=== PATIENT | female | born 1965 | race Caucasian/White ===

== ENCOUNTER → 2016-11-02 | Outpatient (CLI) | payer BC ==
--- NOTE | 2016-11-02 10:59 | MR ---
EXAMINATION TYPE: MR shoulder RT wo con DATE OF EXAM: 11/02/2016 COMPARISON: NONE HISTORY: Right shoulder pain TECHNIQUE: Multiplanar, multisequence imaging of the right shoulder is performed without contrast. FINDINGS: Rotator Cuff: Subcortical humeral head cysts appear to be present. Fluid type signal transverses the distal supraspinatus tendon. Perforation is likely present. A tear approximately 0.5 cm be considered . No retraction is evident. Supraspinatus muscle and additional rotator cuff tendons and muscles are of normal signal. Acromioclavicular Joint: Normal Glenohumeral Joint: Narrowed. Articular surface may be narrowed. Labrum: The labrum appears grossly intact given limitation of non-arthrogram study. Biceps Tendon: The long head of biceps is in normal location within bicipital groove. Small amount of fluid is adjacent suggestive for some mild tendinosis. Bone marrow signal: No focal abnormal marrow signal is appreciated. Other: There is fluid in subacromial bursa and subdeltoid bursa. Fluid appears to transverse the dist al supraspinatus tendon. Findings are suggestive for perforation of the supraspinatus tendon. IMPRESSION: 1. Perforation of the distal supraspinatus tendon. Small amount of fluid in the subdeltoid bursa and subacromial bursa. No retraction is evident.
== END | disposition home or self-care (01) ==
LOC: RADMRIMAIN 08:33
PROVIDERS: ATTEND Orthopaedic Surgery
DX: M25.411 Effusion, right shoulder (principal)

== ENCOUNTER → 2016-11-22 | Outpatient (CLI) | payer BC ==
--- NOTE | 2016-11-23 12:59 | MM ---
Reason for exam: screening (asymptomatic). Last mammogram was performed 1 year and 3 months ago. History: Family history of breast cancer in paternal grandmother. Took hormonal contraceptives for 5 years. Physical Findings: A clinical breast exam by your physician is recommended on an annual basis and results should be correlated with mammographic findings. MG Screening Mammo w CAD Bilateral CC and MLO view(s) were taken. Prior study comparison: August 04, 2015, bilateral MG screening mammo w CAD. July 01, 2013, bilateral digital screening mammo w/CAD. April 09, 2012, bilateral digital screening mammo w/CAD. There are scattered fibroglandular densities. There is chronic nodularity in the left breast. Stable grouped calcifications superior left breast. No significant changes when compared with prior studies. ASSESSMENT: Negative, BI-RAD 1 RECOMMENDATION: Routine screening mammogram of both breasts in 1 year.
== END | disposition home or self-care (01) ==
LOC: RADMAMWWP 11:19
PROVIDERS: ATTEND Family Medicine
DX: Z12.31 Encounter for screening mammogram for malignant neoplasm of breast (principal)

== ENCOUNTER → 2017-12-12 | Outpatient (CLI) | payer BC ==
--- NOTE | 2017-12-13 09:01 | MM ---
Reason for exam: screening (asymptomatic). Last mammogram was performed 1 year and 1 month ago. History: Family history of breast cancer in paternal grandmother. Took hormonal contraceptives for 5 years. Physical Findings: A clinical breast exam by your physician is recommended on an annual basis and results should be correlated with mammographic findings. MG Screening Mammo w CAD Bilateral CC and MLO view(s) were taken. Prior study comparison: November 22, 2016, bilateral MG screening mammo w CAD. August 09, 2015, left breast MG work up mamm w CAD LT. The breast tissue is heterogeneously dense. This may lower the sensitivity of mammography. No suspicious abnormality. No significant changes when compared with prior studies. ASSESSMENT: Negative, BI-RAD 1 RECOMMENDATION: Routine screening mammogram of both breasts in 1 year.
== END | disposition home or self-care (01) ==
LOC: RADMAMWWP 07:54
PROVIDERS: ATTEND Family Medicine
DX: Z12.31 Encounter for screening mammogram for malignant neoplasm of breast (principal)
CPT/HCPCS: 77067

== ENCOUNTER → 2019-01-02 | Outpatient (CLI) | payer BC ==
--- NOTE | 2019-01-03 14:36 | MM ---
Reason for exam: screening (asymptomatic). Last mammogram was performed 1 year and 1 month ago. History: Family history of breast cancer in paternal grandmother. Took hormonal contraceptives for 5 years. Physical Findings: A clinical breast exam by your physician is recommended on an annual basis and results should be correlated with mammographic findings. MG 3D Screening Mammo W/Cad Bilateral CC and MLO view(s) were taken. Prior study comparison: December 12, 2017, bilateral MG screening mammo w CAD. November 22, 2016, bilateral MG screening mammo w CAD. There are scattered fibroglandular densities. No suspicious abnormality. No significant changes when compared with prior studies. ASSESSMENT: Negative, BI-RAD 1 RECOMMENDATION: Routine screening mammogram of both breasts in 1 year.
== END | disposition home or self-care (01) ==
LOC: RADMAMWWP 09:15
PROVIDERS: ATTEND Family Medicine
DX: Z12.31 Encounter for screening mammogram for malignant neoplasm of breast (principal)
CPT/HCPCS: 77063; 77067

== ENCOUNTER → 2019-08-29 | Outpatient (CLI) | payer BC ==
--- NOTE | 2019-08-29 15:21 | FL ---
EXAMINATION TYPE: FL barium swallow DATE OF EXAM: 08/29/2019 COMPARISON: 09/27/2015 HISTORY: Dysphasia this represents fundal plasty TECHNIQUE: A single contrast UGI study is performed. FINDINGS: Esophagus dilates to normal caliber has normal contour to the gastroesophageal junction. Gastroesopha geal junction opens to normal caliber. Very mild hesitancy passing through the prior surgery is evide nt. IMPRESSIONS: 1. No hernia or reflux evident post Bulmaro fundoplication. 2. Incidental note is made of mild fold hypertrophy within the duodenum. Consider upper GI for better evaluation of possible duodenitis.
== END | disposition home or self-care (01) ==
LOC: RADUSWWP 08:33
PROVIDERS: ATTEND Family Medicine
DX: R13.19 Other dysphagia (principal)
CPT/HCPCS: 74220

== ENCOUNTER → 2020-01-05 | Outpatient (CLI) | payer BC ==
--- NOTE | 2020-01-07 09:50 | MM ---
Reason for exam: screening (asymptomatic). Last mammogram was performed 1 year ago. History: Patient is postmenopausal. Family history of breast cancer in paternal grandmother. Took hormonal contraceptives for 5 years. Physical Findings: A clinical breast exam by your physician is recommended on an annual basis and results should be correlated with mammographic findings. MG Screening Mammo w CAD Bilateral CC and MLO view(s) were taken. XCCL view(s) were taken of the right breast. Prior study comparison: January 02, 2019, bilateral MG 3d screening mammo w/cad. December 12, 2017, bilateral MG screening mammo w CAD. There are scattered fibroglandular densities. There is chronic nodularity in the left breast. Stable grouped calcifications 1 o'clock left breast. No significant changes when compared with prior studies. ASSESSMENT: Benign, BI-RAD 2 RECOMMENDATION: Routine screening mammogram of both breasts in 1 year.
== END | disposition home or self-care (01) ==
LOC: RADMAMWWP 13:18
PROVIDERS: ATTEND Family Medicine
DX: Z12.31 Encounter for screening mammogram for malignant neoplasm of breast (principal)
CPT/HCPCS: 77067

== ENCOUNTER → 2020-01-14 | Outpatient (CLI) | payer BC ==
--- NOTE | 2020-01-14 11:24 | XR ---
EXAMINATION TYPE: XR chest 2V DATE OF EXAM: 01/14/2020 COMPARISON: None HISTORY: 54-year-old female with cough TECHNIQUE: Frontal and lateral views FINDINGS: The cardiomediastinal silhouette, aorta, and pulmonary vasculature are within normal limits. Lungs an d pleural spaces are clear. Multiple embolization coils noted along the superior mediastinum. IMPRESSION: No acute cardiopulmonary process. Multiple embolization coils along the superior mediastinum from gerda or vascular intervention. Clinically correlate.
== END | disposition home or self-care (01) ==
LOC: RADXRMAIN 10:55
PROVIDERS: ATTEND Family Medicine
DX: R05 Cough (principal); Z98.890 Other specified postprocedural states
CPT/HCPCS: 71046

== ENCOUNTER → 2021-03-11 | Outpatient (CLI) | payer BC ==
--- NOTE | 2021-03-14 13:53 | MM ---
Reason for exam: screening (asymptomatic). Last mammogram was performed 1 year and 2 months ago. History: Patient is postmenopausal. Family history of breast cancer in paternal grandmother. Took hormonal contraceptives for 5 years. Physical Findings: A clinical breast exam by your physician is recommended on an annual basis and results should be correlated with mammographic findings. MG 3D Screening Mammo W/Cad Bilateral CC and MLO view(s) were taken. Prior study comparison: January 05, 2020, bilateral MG screening mammo w CAD. January 02, 2019, bilateral MG 3d screening mammo w/cad. There are scattered fibroglandular densities. There is chronic nodularity in the left breast. No significant changes when compared with prior studies. ASSESSMENT: Benign, BI-RAD 2 RECOMMENDATION: Routine screening mammogram of both breasts in 1 year.
== END | disposition home or self-care (01) ==
LOC: RADMAMWWP 07:47
PROVIDERS: ATTEND Family Medicine
DX: Z12.31 Encounter for screening mammogram for malignant neoplasm of breast (principal); Z78.0 Asymptomatic menopausal state; Z80.3 Family history of malignant neoplasm of breast
CPT/HCPCS: 77063; 77067

== ENCOUNTER → 2022-06-30 | Outpatient (CLI) | payer BC ==
--- NOTE | 2022-07-03 06:56 | MM ---
Reason for Exam: Screening (asymptomatic). Last mammogram was performed 1 year(s) and 3 month(s) ago. Patient History: Menarche at age 13. First Full-Term at age 21. Postmenopausal. Patient used Hormonal Contraceptives for 5 years. Paternal grandmother had breast cancer. Risk Values: Katie 5 year model risk: 1.1%. NCI Lifetime model risk: 7.2%. Prior Study Comparison: 01/02/2019 Bilateral Screening Mammogram, [facility]. 01/05/2020 Bilateral Screening Mammogram, [facility]. 03/11/2021 Bilateral Screening Mammogram, [facility]. Tissue Density: The breast tissue is heterogeneously dense. This may lower the sensitivity of mammography. Findings: Analyzed By CAD. There are stable small circumscribed round masses bilaterally on background dense tissue with occasional tiny benign-appearing punctate calcification redemonstrated bilaterally. Benign-appearing bilateral axillary lymph nodes are again seen. There is no suspicious new group of microcalcifications or new or enlarging suspicious mass in either breast. Overall Assessment: Benign, BI-RAD 2 Management: Screening Mammogram of both breasts in 1 year. . Patient should continue monthly self-breast exams. A clinical breast exam by your physician is recommended on an annual basis. This exam should not preclude additional follow-up of suspicious palpable abnormalities. Note on Katie scores and lifetime risk: 1. A Katie score greater than 3% is considered moderate risk. If this is the case, consider specialist referral to assess eligibility for a risk reducing agent. 2. If overall lifetime risk for the development of breast cancer is 20% or higher, the patient may qualify for future screening with alternating mammogram and breast MRI. Electronically signed and approved by: Leo Agrawal M.D.
== END | disposition home or self-care (01) ==
LOC: RADMAMWWP 07:01
PROVIDERS: ATTEND Family Medicine
DX: Z12.31 Encounter for screening mammogram for malignant neoplasm of breast (principal)
CPT/HCPCS: 77063; 77067

== ENCOUNTER → 2023-06-20 | Outpatient (CLI) | payer BC ==
[2023-06-20 15:45] LABS: Basophils # (A) 0.04 X 10*3/uL (0.00-0.10); Basophils % (A) 0.7 %; Eosinophils # (A) 0.11 X 10*3/uL (0.04-0.35); Eosinophils % (A) 1.9 %; HCT 42.5 % (37.2-46.3); HGB 14.2 g/dL (12.0-15.0); Lymphocytes % (A) 24.6 %; MCH 30.3 pg (27.0-32.0); MCHC 33.4 g/dL (32.0-37.0); MCV 90.6 FL (80.0-97.0); Mean Platelet Volume 11.3 FL (9.5-12.2); Monocytes # (A) 0.32 X 10*3/uL (0.20-1.00); Monocytes % (A) 5.6 %; NRBC Per 100 WBC 0 X 10*3/uL (0.00-0.01); Neutrophils % (A) 66.8 %; Platelet Count 250 X 10*3/uL (140-440); RBC 4.69 X 10*6/uL (4.10-5.20); RDW 12.8 % (11.5-14.5); WBC 5.69 X 10*3/uL (4.50-10.00)
[2023-06-20 16:04] LABS: ALT 12 U/L (8-44); AST 14 U/L (13-35); Albumin 4.4 g/dL (3.8-4.9); Albumin/Globulin Ratio 1.76 Ratio (1.60-3.17); Alkaline Phosphatase 102 U/L (41-126); BUN/Creat Ratio 12.73 Ratio (12.00-20.00); Calcium 9.6 mg/dL (8.7-10.3); Carbon Dioxide 28.4 mmol/L (21.6-31.8); Chloride 102 mmol/L (96-109); Chol/HDL Ratio 3.19 Ratio; Globulin 2.5 g/dL (1.6-3.3); Glucose 98 mg/dL (70-110); LDL Cholesterol,Calculated 118.3 mg/dL (0.0-131.0); Potassium 3.8 mmol/L (3.5-5.5); Sodium 142 mmol/L (135-145); Total Bilirubin 0.7 mg/dL (0.3-1.2); Total Protein 6.9 g/dL (6.2-8.2)
== END | disposition home or self-care (01) ==
LOC: LABWHC1 09:37
PROVIDERS: ATTEND Family Medicine
DX: Z00.00 Encounter for general adult medical examination without abnormal findings (principal); I10 Essential (primary) hypertension; R14.0 Abdominal distension (gaseous)
CPT/HCPCS: 36415; 80053; 80061; 83036; 83516; 85025

== ENCOUNTER → 2023-07-09 | Outpatient (CLI) | payer BC ==
--- NOTE | 2023-07-09 10:32 | MM ---
Reason for Exam: Screening (asymptomatic). Last mammogram was performed 1 year(s) and 1 month(s) ago. Patient History: Menarche at age 13. First Full-Term at age 21. Postmenopausal. Patient has history of breast feeding. Patient used Hormonal Contraceptives for 5 years. Paternal grandmother had breast cancer. Risk Values: Katie 5 year model risk: 1.1%. NCI Lifetime model risk: 7.1%. Prior Study Comparison: 01/05/2020 Bilateral Screening Mammogram, [facility]. 03/11/2021 Bilateral Screening Mammogram, [facility]. 06/30/2022 Bilateral MG 3D screening mammo w/cad, [facility]. Tissue Density: The breasts are heterogeneously dense, which may obscure small masses. Findings: Analyzed By CAD. There is no suspicious group of microcalcifications or new suspicious mass in either breast. Stable bilateral chronic nodularity. Benign appearing calcifications. Overall Assessment: Benign, BI-RAD 2 Management: Screening Mammogram of both breasts in 1 year. . Patient should continue monthly self-breast exams. A clinical breast exam by your physician is recommended on an annual basis. This exam should not preclude additional follow-up of suspicious palpable abnormalities. Note on Katie scores and lifetime risk: 1. A Katie score greater than 3% is considered moderate risk. If this is the case, consider specialist referral to assess eligibility for a risk reducing agent. 2. If overall lifetime risk for the development of breast cancer is 20% or higher, the patient may qualify for future screening with alternating mammogram and breast MRI. Electronically signed and approved by: Abhijit Rush M.D. [facility]iolog[facility]
== END | disposition home or self-care (01) ==
LOC: RADMAMWWP 07:03
PROVIDERS: ATTEND Family Medicine
DX: Z12.31 Encounter for screening mammogram for malignant neoplasm of breast (principal); Z78.0 Asymptomatic menopausal state; Z80.3 Family history of malignant neoplasm of breast
CPT/HCPCS: 77063; 77067